=== PATIENT | male | born 1955 | race Caucasian/White ===

== ENCOUNTER 2018-10-16 10:09 | Outpatient (CLI) | payer OTHER ==
[2018-10-16] MEDS ORDERED: Iopamidol 370 76% 100 ML VIAL ONE (11:45)
--- NOTE | 2018-10-16 11:50 | CT ---
CT ABDOMEN AND PELVIS WITH AND WITHOUT IV CONTRAST 10/16/2018 CLINICAL INFORMATION: Hematuria. COMPARISON: None. Technique: Multiple contiguous axial CT images are obtained through the abdomen and pelvis with IV contrast. Cor onal reformatted images are provided. FINDINGS: Lower Chest: within normal limits. Vessels: Vascular calcifications are seen in the abdominal aorta and iliac arteries. Abdomen: Portal vein:Patent Gallbladder: Within normal limits for CT imaging. Liver: Diminished attenuation is present within the liver compatible with fatty infiltration. There i s a 2 cm fluid density lesion in the medial segment left hepatic lobe suggestive of a cyst. A tiny too small to characterize hypodense lesion is seen in the posterior segment right hepatic lobe. Spleen: within normal limits. Pancreas: within normal limits. Adrenals: within normal limits. Kidneys: A subcentimeter too small to characterize hypodense lesion is seen in the inferior pole righ t kidney statistically likely representing a small cyst. No enhancing renal mass is present, and there is no hydronephrosis. No renal or ureteral calculi are seen bilaterally. The urinary bladder is partially distended and has a normal sonographic appearance. No filling defects are seen within the renal collecting systems or visualized ureters bilaterally. Bowel: Normal caliber. Appendix: The appendix is visualized and normal in caliber. Peritoneum: No ascites or free air; no fluid collection. Mesentery and Retroperitoneum: No enlarged mesenteric or retroperitoneal lymph nodes. Abdominal Wall: within normal limits. Pelvis: Reproductive Organs: Prostate gland is borderline increase in size measuring 5.1 cm in transverse dim ensions. Pelvis within normal limits. Bladder: Normal appearance for degree of distention with minimal mass effect on the posterior inferio r aspect of the urinary bladder due to prominence of the prostate gland. Bones: Mild degenerative changes are present in the spine greatest at the lumbosacral junction. IMPRESSION: 1. No renal or ureteral calculi are seen bilaterally, and there is no enhancing renal mass seen. 2. Subcentimeter too small to characterize hypodense lesion right kidney statistically likely represe nting a cyst. 3. Fatty infiltration of the liver. 4. Left hepatic lobe cyst with too small to characterize hypodense lesion right hepatic lobe.
== END 2018-10-16 10:10 | disposition home or self-care (01) ==
LOC: CT 10:09
PROVIDERS: ATTEND Urology
DX: R31.29 Other microscopic hematuria (principal); N28.9 Disorder of kidney and ureter, unspecified; K76.0 Fatty (change of) liver, not elsewhere classified; K76.89 Other specified diseases of liver; K76.9 Liver disease, unspecified
CPT/HCPCS: 74178; 82565; Q9967

== ENCOUNTER 2019-10-07 08:15 | Outpatient (CLI) | payer OTHER ==
--- NOTE | 2019-10-07 08:36 | RAD ---
RADIOGRAPH CHEST 2 VIEWS: DATE: 10/07/2019 HISTORY: 64-year-old male with dyspnea FINDINGS: There is no airspace density, pulmonary edema, pleural effusion, pneumothorax, or cardiomegaly. IMPRESSION: No acute cardiopulmonary findings.
== END 2019-10-07 08:16 | disposition home or self-care (01) ==
LOC: BICRAD 08:15
PROVIDERS: ATTEND Internal Medicine Critical Care Medicine
DX: R06.00 Dyspnea, unspecified (principal)
CPT/HCPCS: 71046

== ENCOUNTER 2020-01-11 08:18 | Outpatient (CLI) | payer OTHER ==
--- NOTE | 2020-01-11 08:40 | RAD ---
2 view chest: [01/11/2020] Comparison:10/07/2019 HISTORY: Short of breath FINDINGS: Heart and mediastinal contours are grossly unremarkable. No pneumothorax or pleural fluid. No focal consolidation or alveolar edema. IMPRESSION: No acute findings.
== END 2020-01-11 08:19 | disposition home or self-care (01) ==
LOC: BICRAD 08:18
PROVIDERS: ATTEND Internal Medicine Critical Care Medicine
DX: R06.00 Dyspnea, unspecified (principal)
CPT/HCPCS: 71046

== ENCOUNTER 2020-05-08 13:30 | Emergency (ER) | payer OTHER ==
--- NOTE | 2020-05-08 14:43 | RAD ---
LEFT SHOULDER THREE VIEWS: History: Fall with injury and pain. FINDINGS: No evidence of fracture or dislocation. AC joint normally aligned. IMPRESSION: No acute abnormality identified. POS: [facility]
== END 2020-05-08 15:55 ==
LOC: ERS 13:30
DX: S40.011A Contusion of right shoulder, initial encounter (principal); W01.0XXA Fall on same level from slipping, tripping and stumbling without subsequent striking against object, initial encounter

== ENCOUNTER 2022-12-12 07:43 | Outpatient (CLI) | payer BC, MEDICARE | END 2022-12-12 07:44 | disposition home or self-care (01) | LOC: BICULT 07:43 | PROVIDERS: ATTEND Nurse Practitioner Family | DX: Z00.00 Encounter for general adult medical examination without abnormal findings (principal); Z13.6 Encounter for screening for cardiovascular disorders | CPT/HCPCS: 76775 ==